=== PATIENT | male | born 1985 | race Hispanic/Latino ===

== ENCOUNTER 2023-05-10 11:45 | Emergency (ER) | payer OTHER ==
[2023-05-10] MEDS ORDERED: Lidocaine 1% (PF) 30 ML VIAL ONE (13:50)
[2023-05-10] MEDS ORDERED: Boostrix 0.5 ML (Tdap) VIAL (>/=7 yrs of age) ONE (13:50)
== END 2023-05-10 14:55 | disposition home or self-care (01) ==
LOC: CSHERS 11:45
DX: S61.012A Laceration without foreign body of left thumb without damage to nail, initial encounter (principal); Y99.0 Civilian activity done for income or pay; W26.8XXA Contact with other sharp object(s), not elsewhere classified, initial encounter; Z23 Encounter for immunization
CPT/HCPCS: 12001; 90471; 90715; J2001